=== PATIENT | female | born 1995 ===

== ENCOUNTER 2017-04-06 18:35 | Emergency (ER) | payer OTHER ==
[2017-04-06 18:36] VITALS: BMI 25.9
[2017-04-06 18:45] VITALS: BP 112/60; PULSE 82; RESP 16; TEMP 98.4; O2SAT 100
[2017-04-06] MEDS ORDERED: Sodium Chloride 0.9% 1,000 ML IV STA (19:51)
--- NOTE | 2017-04-06 20:03 | ED PDOC ---
HPI: Abdomen History Per: Patient (21 y at 10 weeks gestation as confirmed by transvaginal U/S on 03/01, LMP 01/22 presents to ED with complaints of a 3 day history of abdominal pain and vaginal bleed. Pt localizes her pain to her lower abdomen, 6/10 in intensity, with associated back pain. She describes her vaginal bleed as "small spots" and states that it is not enough to fill a small pad. Denies fever, chills, n/v, dysuria,chest pain, weakness, lightheadedness. ) <Betito Priest - Last Filed: 04/06/17 21:57> <Madeline Rudd - Last Filed: 04/06/17 22:23> Time Seen by Provider: 04/06/17 18:56 Chief Complaint (Nursing): Abdominal Pain Supervising Attending Note - Supervising Attending Note The Documented history was done by the: Physician Supply Aide The documented physical exam was done by the: Physician Supply Aide The documented procedures were done by the: Physician Supply Aide - Attestation: I have personally seen and examined this patient.: Yes I have fully participated in the care of the patient.: Yes I have reviewed all pertinent clinical information: Yes <Madeline Rudd - Last Filed: 04/06/17 22:23> Past Medical History Reviewed: Historical Data, Nursing Documentation, Vital Signs - Medical History PMH: Denies: Sexually Transmitted Disease - Surgical History Surgical History: No Surg Hx - Family History Family History: States: Unknown Family Hx - Social History Current smoker - smoking cessation education provided: No Alcohol: None Drugs: Denies - Immunization History Hx Tetanus Toxoid Vaccination: No Hx Influenza Vaccination: Yes (2015) Hx Pneumococcal Vaccination: No <Betito Priest - Last Filed: 04/06/17 21:57> <Madeline Rudd - Last Filed: 04/06/17 22:23> Vital Signs: Last Vital Signs Temp 98.4 F 04/06/17 18:42 Pulse 82 04/06/17 18:42 Resp 16 04/06/17 18:42 BP 112/60 04/06/17 18:42 Pulse Ox 100 04/06/17 22:02 - Home Medications Home Medications: Ambulatory Orders Medication Instructions Recorded Cetirizine HCl [Zyrtec] 10 mg PO DAILY #20 capsule 06/14/16 Oxymetazoline 0.05% [Oxymetazoline 2 drop NS BID #1 bottle 06/14/16 HCl 30 Ml] - Allergies Allergies/Adverse Reactions: Allergies Allergy/AdvReac Type Severity Reaction Status Date / Time No Known Allergies Allergy Verified 04/06/17 18:41 Review of Systems ROS Statement: Except As Marked, All Systems Reviewed And Found Negative Constitutional: Negative for: Fever, Chills, Weakness Cardiovascular: Negative for: Chest Pain, Light Headedness Respiratory: Negative for: Cough Gastrointestinal: Positive for: Abdominal Pain. Negative for: Nausea, Vomiting Genitourinary Female: Positive for: Pelvic Pain. Negative for: Dysuria Musculoskeletal: Positive for: Back Pain Neurological: Negative for: Weakness Psych: Positive for: Anxiety <Betito Priest - Last Filed: 04/06/17 21:57> Physical Exam - Reviewed Nursing Documentation Reviewed: Yes Vital Signs Reviewed: Yes - Physical Exam Appears: Positive for: Well, Non-toxic, No Acute Distress Head Exam: Positive for: ATRAUMATIC, NORMAL INSPECTION, NORMOCEPHALIC Skin: Positive for: Normal Color, Warm, DRY Eye Exam: Positive for: EOMI, Normal appearance, PERRL ENT: Positive for: Normal ENT Inspection Neck: Positive for: Normal, Painless ROM Cardiovascular/Chest: Positive for: Regular Rate, Rhythm Respiratory: Positive for: CNT, Normal Breath Sounds Gastrointestinal/Abdominal: Positive for: Normal Exam, Bowel Sounds, Soft, Tenderness (Tender to palpation of suprapubic region ) Pelvic Exam: Positive for: Active Bleeding (small amount of bleeding near cervix ; no products of conception seen in upper vagina or protruding thru cervical os) . Negative for: No Cerv. Motion Tender, Cervicitis, Discharge, Lesions, Tender Uterus, Ulcers Back: Positive for: Normal Inspection. Negative for: L CVA Tenderness, R CVA Tenderness Extremity: Positive for: Normal ROM Neurologic/Psych: Positive for: Alert, Oriented <Betito Priest - Last Filed: 04/06/17 21:57> - Laboratory Results Result Diagrams: 04/06/17 20:23 04/06/17 20:23 - ECG O2 Sat by Pulse Oximetry: 100 <Betito Priest - Last Filed: 04/06/17 21:57> - Laboratory Results Result Diagrams: 04/06/17 20:23 04/06/17 20:23 <Madeline Rudd - Last Filed: 04/06/17 22:23> Disposition <Betito Priest - Last Filed: 04/06/17 21:57> - Patient ED Disposition Is Patient to be Admitted: No Doctor Will See Patient In The: Office Counseled Patient/Family Regarding: Diagnosis, Need For Followup - Disposition Disposition: Routine/Home Disposition Time: 22:22 <Madeline Rudd - Last Filed: 04/06/17 22:23> - Clinical Impression Clinical Impression: Miscarriage - Disposition [facility]] [facility] [Outside] [facility] [Outside] Condition: STABLE Forms: Welcome Real-time (Croatian)
[2017-04-06 20:27] LABS: BASO % 0.3 % (0.0-2.0); EOS # 0.2 K/uL (0.0-0.7); EOS % 2.1 % (0.0-4.0); HEMATOCRIT 38.8 % (34.0-47.0); LYMPH % 24.3 % (20.0-40.0); MEAN CORPUSCULAR HEMOGLOBIN 28.3 pg (27.0-31.0); MEAN CORPUSCULAR HGB CONC 33.7 g/dL (33.0-37.0); MEAN PLATELET VOLUME 8.6 fl (7.2-11.7); MONO # 0.6 K/uL (0.0-0.8); MONO % 7.4 % (0.0-10.0); NEUT # 5.5 K/uL (1.8-7.0); NEUT % 65.9 % (50.0-75.0); NRBC % 0.1 % (0.0-0.0); RED CELL DISTRIBUTION WIDTH 13.3 % (11.5-14.5); WHITE BLOOD COUNT 8.3 K/uL (4.8-10.8)
[2017-04-06 20:33] LABS: RBC URINE < 1 /hpf (0-3); URINE BILIRUBIN NEGATIVE (NEGATIVE); URINE BLOOD NEGATIVE (NEGATIVE); URINE COLOR STRAW (YELLOW); URINE GLUCOSE (UA) NEG (Normal); URINE KETONE NEGATIVE (NEGATIVE); URINE LEUKOCYTE ESTERASE NEG Leu/uL (Negative); URINE PROTEIN NEGATIVE (NEGATIVE); URINE UROBILINOGEN 0.2-1.0 mg/dL (0.2-1.0)
[2017-04-06 20:36] LABS: BLOOD UREA NITROGEN 5 mg/dl (7-17); CALCIUM 9.6 mg/dL (8.4-10.2); CARBON DIOXIDE 24 mmol/L (22-30); CHLORIDE 104 mmol/L (98-107); GFR AFRICAN-AMERICAN > 60; GLUCOSE,RANDOM 92 mg/dL (65-105); SODIUM 139 mmol/l (132-148)
--- NOTE | 2017-04-06 21:44 | US ---
EXAM: US CLINICAL HISTORY: 21 years old, female; Signs and symptoms; Lmp or gestational age (in weeks): 01/22/2017; Other: Spotting x 2days; ; Additional info: Vaginal bleeding TECHNIQUE: Real-time transabdominal and transvaginal obstetrical ultrasound of the maternal pelvis and a first trimester with image documentation. COMPARISON: No relevant prior studies available. FINDINGS: Uterus: Retroverted uterus. No intrauterine gestational sac is seen. The uterus is heterogeneous. Endometrium is thickened measured at 2 cm and appears irregular and complex with anechoic foci within and vascularity. Adnexa: Doppler evaluation reveals vascular flow in both ovaries. Follicles. No mass noted. Free fluid: Small amount of free fluid, in region of left adnexa. IMPRESSION: Endometrium is thickened measured at 2 cm and appears irregular and complex with anechoic foci within and vascularity. Additional followup evaluation recommended. Correlate with beta hCG which is unavailable at time of interpretation. No intrauterine is identified. Differential diagnosis includes spontaneous , very early intrauterine , and ectopic . Small amount of free fluid, in region of left adnexa.
== END 2017-04-06 22:28 | disposition home or self-care (01) ==
LOC: H.ER 18:35
DX: O03.9 Complete or unspecified spontaneous abortion without complication (principal)
CPT/HCPCS: 76817; 80048; 81003; 81025; 84702; 85025; 96360; 99283; J7040

== ENCOUNTER 2017-10-20 00:06 | Emergency (ER) | payer OTHER ==
[2017-10-20 00:06] VITALS: BMI 25.9
[2017-10-20 00:35] VITALS: BP 113/73; PULSE 80; RESP 16; TEMP 97.8; O2SAT 99
--- NOTE | 2017-10-20 01:22 | ED PDOC ---
HPI: Abdomen Time Seen by Provider: 10/20/17 00:39 Chief Complaint (Nursing): Abdominal Pain Chief Complaint (Provider): Abdominal Pain History Per: Patient History/Exam Limitations: no limitations Associated Symptoms: denies: Fever, Nausea, Vomiting, Diarrhea, Urinary Symptoms Additional Complaint(s): 22 y/o female presents to the ED for evaluation of lower abdominal pain associated with lower back pain and light vaginal spotting since 11pm. Patient reports 5 weeks and has no prior obstetrics care for this . Also reports miscarriage 6 months ago. Her last normal menstrual period was on 09/19/2017. Denies nausea, vomiting, flank pain, urinary symptoms or any further medical complaints. PMD: None Past Medical History Reviewed: Historical Data, Nursing Documentation, Vital Signs Vital Signs: Last Vital Signs Temp 97.8 F 10/20/17 00:29 Pulse 80 10/20/17 00:29 Resp 16 10/20/17 00:29 BP 113/73 10/20/17 00:29 Pulse Ox 99 10/20/17 04:09 - Medical History PMH: No Chronic Diseases Denies: Sexually Transmitted Disease - Surgical History Surgical History: No Surg Hx - Family History Family History: States: Unknown Family Hx - Social History Current smoker - smoking cessation education provided: No Alcohol: None Drugs: Denies - Immunization History Hx Influenza Vaccination: Yes (2016) - Home Medications Home Medications: Ambulatory Orders Medication Instructions Recorded Cetirizine HCl [Zyrtec] 10 mg PO DAILY #20 capsule 06/14/16 Oxymetazoline 0.05% [Oxymetazoline 2 drop NS BID #1 bottle 06/14/16 HCl 30 Ml] Pnv No.121/Iron/Folic Acid 1 each PO DAILY #14 tablet 10/20/17 [ Multivitamin Tablet] - Allergies Allergies/Adverse Reactions: Allergies Allergy/AdvReac Type Severity Reaction Status Date / Time No Known Allergies Allergy Verified 04/06/17 18:41 Review of Systems ROS Statement: Except As Marked, All Systems Reviewed And Found Negative (As per HPI, otherwise negative) Gastrointestinal: Positive for: Abdominal Pain (Lower). Negative for: Nausea, Vomiting Genitourinary Female: Positive for: Other (vaginal spotting). Negative for: Dysuria, Frequency, Incontinence, Hematuria Musculoskeletal: Positive for: Back Pain (lower) Physical Exam - Reviewed Nursing Documentation Reviewed: Yes Vital Signs Reviewed: Yes - Physical Exam Appears: Positive for: Well, Non-toxic, No Acute Distress Head Exam: Positive for: ATRAUMATIC, NORMOCEPHALIC Skin: Positive for: Normal Color, Warm, Dry Eye Exam: Positive for: EOMI, PERRL ENT: Positive for: Normal ENT Inspection Neck: Positive for: Painless ROM, Supple Cardiovascular/Chest: Positive for: Regular Rate, Rhythm. Negative for: Murmur Respiratory: Positive for: Normal Breath Sounds. Negative for: Decreased Breath Sounds, Accessory Muscle Use, Respiratory Distress Gastrointestinal/Abdominal: Positive for: Bowel Sounds (active x4), Soft, Tenderness (suprapubic). Negative for: Distended, Guarding, Rebound Back: Positive for: Normal Inspection. Negative for: L CVA Tenderness, R CVA Tenderness Extremity: Positive for: Normal ROM. Negative for: Pedal Edema, Deformity Neurologic/Psych: Positive for: Alert, Oriented (x3), Mood/Affect (calm, cooperative), Gait (steady in ED) - Laboratory Results Result Diagrams: 10/20/17 01:35 10/20/17 01:35 - ECG O2 Sat by Pulse Oximetry: 99 (RA) Pulse Ox Interpretation: Normal Medical Decision Making Medical Decision Making: Time: 01:05 Initial Impression: Vaginal bleeding (first trimester) and abdominal pain Plan: Type and screen Beta- HcG, quantitative CMP Urine dipstick Urine CBbc w/ differential IV Insertion Transvaginal US Patient declines any medications at this time. Urine Dipstick -- Positive for -- Negative for glucose, bilirubin, leukocytes, nitrates, ketones, blood, protein 0300 Labs reviewed. Beta quant: 2,338.10. Patient pending U/S evaluation. 0320 Patient in U/S. 0402 U/S reviewed, radiology report follows EXAM: US , Transvaginal CLINICAL HISTORY: 22 years old, female; Signs and symptoms; Other: Spotting; Additional info: Vaginal bleeding, TECHNIQUE: Real-time transvaginal obstetrical ultrasound of the maternal pelvis and a first trimester with image documentation. Transvaginal imaging was used for better evaluation of the fetus and adnexa. COMPARISON: No relevant prior studies available. FINDINGS: Gestation: 0.5 x 0.2 x 0.5 cm saclike structure within uterus. No yolk sac. No pole. Uterus/cervix: Endometrium: 1.3 cm in thickness. Closed cervix. Ovaries: Normal ovaries. No adnexal masses. Free fluid: No significant free fluid. IMPRESSION: 1. Sac without pole or yolk sac. DDX: Early IUP, blighted ovum, ectopic (with pseudogestational sac). Followup is recommended. Thank you for allowing us to participate in the care of your patient. Dictated and Authenticated by: Delmer Casanova MD 10/20/2017 3:46 AM Eastern Time ([place] & [place]) 0410 On re-evaluation, patient reports improvement of symptoms, denies any abdominal pain at present. On exam, patient remains AAOx3, in no acute distress. Lungs clear to auscultation, cardiac RRR, abdomen soft, non-tender, repeat neuro exam shows no focal findings. Lab results reviewed, Diagnostic results d/w the patient in great detail. Diagnosis of abdominal pain in , vaginal bleeding d/w the patient. Based on history, exam and diagnostic results, plan will be for outpatient follow up. Patient instructed to follow-up with pmd / referral provided / the clinic in 1- 2 days without fail. Advised to take medication as prescribed. Return to the emergency room at any time for any new or worsening symptoms. Patient states she fully agrees with and understands discharge instructions. States that she agrees with the plan and disposition. Verbalized and repeated discharge instructions and plan. I have given the patient opportunity to ask any additional questions. Scribe Attestation: Documented by Rosalind Rosales acting as a scribe for FLORENCIO Olvera. MD Lua Attestation: All medical record entries made by the Scribe were at my direction and personally dictated by me. I have reviewed the chart and agree that the record accurately reflects my personal performance of the history, physical exam, medical decision making, and the department Disposition - Clinical Impression Clinical Impression: Vaginal bleeding affecting early , First-trimester bleeding, Abdominal pain during - Patient ED Disposition Is Patient to be Admitted: No Counseled Patient/Family Regarding: Studies Performed, Diagnosis, Need For Followup, Rx Given - Disposition [facility] [Outside] Disposition: Routine/Home Disposition Time: 04:05 Condition: FAIR Additional Instructions: FOLLOW UP WITHIN 2-4 DAYS FOR REPEAT U/S EVALUATION. Prescriptions: Pnv No.121/Iron/Folic Acid [ Multivitamin Tablet] 1 each PO DAILY #14 tablet Instructions: Bleeding With , - The First Month, - The Second Month, - The Third Month Forms: [employer] (Israeli) - POA Present On Arrival: None Results - Lab Results Lab Results: 10/20/17 10/20/17 10/20/17 01:35 01:35 01:14 WBC 12.1 H RBC 4.56 Hgb 12.8 Hct 38.7 MCV 84.8 MCH 28.0 MCHC 33.1 RDW 13.7 Plt Count 211 MPV 8.9 Neut % (Auto) 66.0 Lymph % (Auto) 25.0 [place] % (Auto) 5.3 Eos % (Auto) 2.9 Baso % (Auto) 0.8 Neut # (Auto) 8.0 H Lymph # (Auto) 3.0 [place] # (Auto) 0.6 Eos # (Auto) 0.4 Baso # (Auto) 0.1 Sodium 140 Potassium 4.0 Chloride 103 Carbon Dioxide 23 Anion Gap 18 BUN 12 Creatinine 0.6 L Est GFR ( Amer) > 60 Est GFR (Non-Af Amer) > 60 Random Glucose 97 Calcium 9.1 Total Bilirubin 0.2 AST 19 ALT 44 Alkaline Phosphatase 72 Total Protein 7.1 Albumin 4.2 Globulin 2.9 Albumin/Globulin Ratio 1.4 Beta HCG, Quant 2338.10 Blood Type O POSITIVE Antibody Screen Negative BBK History Checked No verified bt
[2017-10-20 01:39] LABS: BASO # 0.1 K/uL (0.0-0.2); BASO % 0.8 % (0.0-2.0); EOS # 0.4 K/uL (0.0-0.7); EOS % 2.9 % (0.0-4.0); HEMOGLOBIN 12.8 g/dL (12.0-16.0); MEAN CELL VOLUME 84.8 fl (81.0-99.0); MEAN CORPUSCULAR HGB CONC 33.1 g/dL (33.0-37.0); MEAN PLATELET VOLUME 8.9 fl (7.2-11.7); MONO # 0.6 K/uL (0.0-0.8); MONO % 5.3 % (0.0-10.0); NRBC % 0.2 % (0.0-0.0); RBC 4.56 Mil/uL (3.80-5.20); RED CELL DISTRIBUTION WIDTH 13.7 % (11.5-14.5); WHITE BLOOD COUNT 12.1 K/uL (4.8-10.8)
[2017-10-20 01:46] LABS: ALB/GLOB RATIO 1.4 (1.0-2.1); ALBUMIN 4.2 g/dL (3.5-5.0); ALT/SGPT 44 U/L (9-52); AST/SGOT 19 U/L (14-36); BLOOD UREA NITROGEN 12 mg/dl (7-17); CALCIUM 9.1 mg/dL (8.4-10.2); GFR AFRICAN-AMERICAN > 60; GFR NON-AFRICAN AMERICAN > 60
--- NOTE | 2017-10-20 03:46 | US ---
EXAM: US , Transvaginal CLINICAL HISTORY: 22 years old, female; Signs and symptoms; Other: Spotting; Additional info: Vaginal bleeding, TECHNIQUE: Real-time transvaginal obstetrical ultrasound of the maternal pelvis and a first trimester with image documentation. Transvaginal imaging was used for better evaluation of the fetus and adnexa. COMPARISON: No relevant prior studies available. FINDINGS: Gestation: 0.5 x 0.2 x 0.5 cm saclike structure within uterus. No yolk sac. No pole. Uterus/cervix: Endometrium: 1.3 cm in thickness. Closed cervix. Ovaries: Normal ovaries. No adnexal masses. Free fluid: No significant free fluid. IMPRESSION: 1. Sac without pole or yolk sac. DDX: Early IUP, blighted ovum, ectopic (with pseudogestational sac). Followup is recommended.
== END 2017-10-20 04:25 | disposition home or self-care (01) ==
LOC: H.ER 00:06
DX: O26.851 Spotting complicating pregnancy, first trimester (principal); O26.91 Pregnancy related conditions, unspecified, first trimester; R10.2 Pelvic and perineal pain

== ENCOUNTER 2018-06-07 07:08 | Inpatient (IN) | payer MEDICAID, SELFPAY ==
[2018-06-07 08:21] VITALS: BMI 34.3
[2018-06-07 09:30] VITALS: O2SAT 99
[2018-06-07 10:08] LABS: BASO % 0.2 % (0.0-2.0); EOS # 0.1 K/uL (0.0-0.7); EOS % 0.7 % (0.0-4.0); HEMOGLOBIN 11.8 g/dL (12.0-16.0); LYMPH # 1.4 K/uL (1.0-4.3); LYMPH % 12.8 % (20.0-40.0); MEAN CELL VOLUME 80.7 fl (81.0-99.0); MEAN CORPUSCULAR HEMOGLOBIN 26.7 pg (27.0-31.0); MEAN CORPUSCULAR HGB CONC 33.1 g/dL (33.0-37.0); MONO # 0.6 K/uL (0.0-0.8); MONO % 5.6 % (0.0-10.0); NEUT % 80.7 % (50.0-75.0); NRBC % 0.2 % (0.0-0.0); RBC 4.43 Mil/uL (3.80-5.20); RED CELL DISTRIBUTION WIDTH 15.7 % (11.5-14.5); WHITE BLOOD COUNT 11.1 K/uL (4.8-10.8)
[2018-06-07] MEDS ORDERED: Lactated Ringer's 1,000 ML IV SCH (10:45)
[2018-06-07] MEDS ORDERED: OXYTOCIN/0.9 % NS 20 UNIT/1,000 ML BAG IV SCH (10:45)
[2018-06-07] MEDS ORDERED: Oxytocin 30 UNIT 30 UNITS/500 ML BAG IV ONE ×2 (11:11→17:32)
[2018-06-07] MEDS: Lactated Ringer's 1,000 ML IV SCH ×3 (14:00→16:55)
[2018-06-07] MEDS ORDERED: Fentanyl/Bupivacaine HCl 250 ML EPI ONE (14:11)
[2018-06-07] MEDS ORDERED: Lidocaine 1% Inj (20ml) ONE (14:45)
[2018-06-07] MEDS ORDERED: Benzocaine/Menthol SPRAY TOP PRN ×2 (16:05→17:58)
--- NOTE | 2018-06-07 20:20 | OBHP ---
Datetime: 06/07/2018 14:13 Presentation-Admit: Vertex FHR - Baseline A Provider: 120 Amniotic Fluid Color, Provider: Clear Membranes, Provider: Ruptured Gestation - Est Wks by US: 37.2 Vital Signs Provider: Reviewed; Within Normal Limits NICHD Variability Prov Fetus A: Moderate 6-25bpm NICHD Accel Fetus A IP Provider: [id number] FHR Category Provider Fetus A: Category I NICHD Decel Fetus A IP Provider: None Datetime: 06/07/2018 10:35 Contraction Comments Provider: Uterine irritability Datetime: 06/07/2018 08:21 IP Adm Impression: Term, intrauterine ; No Active Labor; Ruptured Membranes IP Admit Plan: Admit to unit; Initiate labor protocol Admit Comment, IP Provider: Pt is a 22 yo F 37.2wk, JASSON 06/26/18 based on LMP 09/19/17. Came to [facility] due to feeling LOF, she felt a gush then trickling since 5:40am then started to feel lower abdominal pain. Pt states she feels good movement. Denies vaginal bleeding, contractions, fever s, chills, chest pain, SOB, nausea, vomiting, diarrhea, constipation or dysuria. 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 Lungs: clear to auscultation bilaterally, no wheezing , rales or rhonchi Abdomen: gravid Extremities: no edema Speculum- + Nitrazine, + fern test, Bimanual- 3cm dilated, 90% effacement heart rate -140's 15x15 accelerations category 1 A/P: Pt is a 22 yo F 37.2wk, JASSON 06/26/18 based on LMP 09/19/17. Came to [facility] due to feeling LO F -Admit to L _ D -Monitor heart rate (150's) -NPO -Lactated Ringers -Speculum [id number]-8-0mt, 90%effaced, -2 station, + nitrazine, + fern Case reviewed and discussed with Attending -Carol Lundy- PGY1 Pelvic Type - PN: Adequate Extremities - PN: Normal Abdomen - PN: Normal Back - PN: Not Done Breast - PN: Not Done Lungs - PN: Normal Heart - PN: Normal Thyroid - PN: Not Done Neurologic - PN: Normal HEENT - PN: Normal General - PN: Normal Pool Provider: Positive Nitrazine Provider: Positive Ferning Provider: Positive EGA AdmitDate IP: 37.2 IP Chief Complaint: Suspected ruptured membranes Dilatation, Provider: 3 Effacement, Provider: 90 Station, Provider: -2 Genitourinary Exam: Normal DTRs - PN: Not Done
--- NOTE | 2018-06-07 20:24 | OBDS ---
DELIVERY PERSONNEL Delivery Doctor: Cody Moser MD Dean Of Boys: Hailee Prather RN Resident: Dr Buck (fellow) MATERNAL INFORMATION Delivery Anesthesia: Epidural Medications in Delivery: Pitocin Estimated Blood Loss (ml): 250 Quatatative Placenta Cultured: No Maternal Complications: None RN Comments: Atraumatic of a viable babyboy with lusty cry. Infant and patient tolerated deliv hong well. Skin to skin initiated immediately post delivery. Patient intact. Infant and patient bharati ated delivery well. Provider Comments: 22 year old GBS negative admitted at 37.2 for PROM. Normal spontaneous vagin al delivery of live male infact, position BEATRIZ over intact perineum with epidural anesthesia. Terminal meconium with no nuchal cord, Apgars 9 _ 9. was placed on maternal abdomen and delayed cord c lamping was performed, no excessive resuscitation was required. Spontaneous delivery of placenta with 3-vessel cord. The vagina was explored and no lacerations were found. EBL 250cc. Gayle Buck MD OB Fellow Attending Note: Delivery was conducted with OB fellow and I agree with the above assessment. LABOR SUMMARY EDC: 06/26/2018 00:00 No. Babies in Womb: 1 Attempted: No Labor Anesthesia: Epidural LABOR INFORMATION Reason for Induction: Other Reason for Induction Other: ROM Onset of Labor: 06/07/2018 13:00 Complete Dilatation: 06/07/2018 15:30 Oxytocin: Induction Group B Beta Strep: Negative Antibiotics # of Doses: 0 Steroids Given: None Reason Steroids Not Administered: Not Applicable Other Reason Not Administered: Not required MEMBRANES Membranes Rupture Method: Spontaneous Rupture of Membranes: 06/07/2018 05:40 Length of Rupture (hrs): 10.15 Amniotic Fluid Color: Clear Amniotic Fluid Amount: Scant Amniotic Fluid Odor: Normal STAGES OF LABOR Stage 1 hrs: 2 Stage 1 min: 30 Stage 2 hrs: 0 Stage 2 min: 19 Stage 3 hrs: 0 Stage 3 min: 8 Total Time in Labor hrs: 2 Total Time in Labor min: 57 VAGINAL DELIVERY Episiotomy: None Laceration Extension: N/A Laceration Type: None Initial Vag Sponge Count: 10 Final Vag Sponge Count: 10 Initial Vag Sharps Count: 0 Final Vag Sharps Count: 0 Sponge Count Correct: Yes Sharps Count Correct: Yes BABY A INFORMATION Delivery Date/Time: 06/07/2018 15:49 Method of Delivery: Vaginal Born in Route : No : N/A Forceps: N/A Vacuum Extraction: N/A Shoulder Dystocia : No SHOULDER DYSTOCIA BABY A Infant Delivery Date/Time: 06/07/2018 15:49 PRESENTATION/POSITION BABY A Presentation: Cephalic Cephalic Presentation: Vertex Vertex Position: Left Occipital Anterior Breech Presentation: N/A PLACENTA INFORMATION BABY A Placenta Delivery Time : 06/07/2018 15:57 Placenta Method of Delivery: Spontaneous Placenta Status: Delivered SCORES BABY A Heart Rate 1 min: >100 bpm Resp Effort 1 min: Good Cry Reflex Irritability 1 min: Cough or Sneeze or Pulls Away Muscle Tone 1 min: Active Motion Color 1 min: Body Shell, Extremities Blue Resuscitation Effort 1 min: N/A SCORE 1 MIN: 9 Heart Rate 5 min: >100 bpm Resp Effort 5 min: Good Cry Reflex Irritability 5 min: Cough or Sneeze or Pulls Away Muscle Tone 5 min: Active Motion Color 5 min: Body Shell, Extremities Blue Resuscitation Effort 5 min: N/A SCORE 5 MIN: 9 INFANT INFORMATION BABY A Gestational Age at Delivery: 37.0 Gestational Status: Term Outcome : Liveborn Condition : Stable Infant Sex: Male IDENTIFICATION/MEDS BABY A ID Band Number: [id number] ID Band Location: Right Leg; Right Arm WEIGHT/LENGTH BABY A Infant Birthweight (gms): 3445 Infant Weight (lb): 7 Weight (oz): 9 CORD INFORMATION BABY A No. Cord Vessels: 3 Nuchal Cord : N/A Nuchal Cord Other: 0 Cord Blood Taken: No Suction: Mouth
[2018-06-07] MEDS ORDERED: Influenza Vaccine (5 YR UP)/PF 60 MCG/0.5 ML SYR IM ONE (21:00)
[2018-06-08 06:47] LABS: BASO % 0.1 % (0.0-2.0); EOS % 0.2 % (0.0-4.0); HEMOGLOBIN 9.2 g/dL (12.0-16.0); LYMPH # 1.5 K/uL (1.0-4.3); LYMPH % 12.5 % (20.0-40.0); MEAN CELL VOLUME 80.5 fl (81.0-99.0); MEAN CORPUSCULAR HEMOGLOBIN 27.3 pg (27.0-31.0); MEAN CORPUSCULAR HGB CONC 33.9 g/dL (33.0-37.0); MEAN PLATELET VOLUME 9.1 fl (7.2-11.7); MONO # 0.8 K/uL (0.0-0.8); MONO % 6.9 % (0.0-10.0); NEUT # 9.5 K/uL (1.8-7.0); NEUT % 80.3 % (50.0-75.0); NRBC % 0.1 % (0.0-0.0); RBC 3.36 Mil/uL (3.80-5.20); RED CELL DISTRIBUTION WIDTH 15.6 % (11.5-14.5); WHITE BLOOD COUNT 11.9 K/uL (4.8-10.8)
--- NOTE | 2018-06-08 08:43 | OBPPN ---
Datetime: 06/08/2018 06:24 PP Pain Prov: Within normal limits PP Nausea Prov: Denies PP Flatus Prov: Yes PP BM Prov: No PP Breasts Prov: Normal PP Heart Prov: Normal PP Lungs Prov: Normal PP Abdomen/Uterus Prov: Normal PP Lochia Prov: Normal PP Vulva/Perineum Prov: Normal PP CVA Tenderness Prov: Normal PP Extremities Prov: Normal PP C/S Incision Prov: Normal PP Comments Phys Exam Prov: Abd: Soft, NT, BS- present UT- Firm PP Impression Prov: Normal progression PP Plan Prov: Continue present management PP Progress Note Prov: 22 y/o PPD 1 s/p had no complaints of overnight. +FM, -BM, voiding, ambulating, _ tolerating PO diet w/o difficulty. Lochia like menses. Fundus @ level of umbilical Den ies any f/c/n/v/d, cp or sob. VS: 119/51, HR-90bpm, Temp-97.9F Gen: awake _ alert breasting in bed Cardio: s1 s2 no murmurs Lungs: cta b/l Abd: BS +, appropriate tenderness Ext: nontender A/P: 22 y/o PPD 1 s/p -Continue present management -Medication for pain management -Encourage breast feeding -SCD for DVT prophylaxis -Case discussed with attending -KORI Dee JP, PGY-1 Vital Signs Provider PP: Reviewed; Within Normal Limits
[2018-06-09] MEDS ORDERED: Prenatal Multivit/Folic Acid/Iron Tab PO SCH (09:00)
--- NOTE | 2018-06-09 13:52 | OBPPN ---
Datetime: 06/09/2018 06:45 PP Pain Prov: Within normal limits PP Nausea Prov: Denies PP Flatus Prov: Yes PP BM Prov: No PP Breasts Prov: Not Done PP Heart Prov: Normal PP Lungs Prov: Normal PP Abdomen/Uterus Prov: Normal PP Lochia Prov: Normal PP Vulva/Perineum Prov: Normal PP CVA Tenderness Prov: Normal PP C/S Incision Prov: Not Applicable PP Progress Prov: Normal PP Impression Prov: Normal progression PP Plan Prov: Continue present management; Discharge PP Progress Note Prov: 22 y/o PPD 1 s/p had no complaints of overnight. +FM, -BM, voiding, ambulating, _ tolerating PO diet w/o difficulty. Lochia like menses. Breast feeding and supplementin g with bottle. Fundus @ level of umbilical Denies any f/c/n/v/d, cp or sob. VS: 119/51, HR-90bpm, Temp-97.9F Gen: awake _ alert breasting in bed Cardio: s1 s2 no murmurs Lungs: cta b/l Abd: BS +, appropriate tenderness Ext: nontender A/P: 22 y/o PPD 1 s/p -Medication for pain management -Encourage breast feeding -Patient stable for discharge today -Lory Grey, PGY-1 [employer] Underwriter. Attending Note: Patient was seen and discussed with resident and I agree with the above. Vital Signs Provider PP: Reviewed; Within Normal Limits
--- NOTE | 2018-06-09 13:55 | OBDCSUM ---
Datetime: 06/09/2018 06:47 Discharged to, Provider: Home Follow up at, Provider: Linwood Garcia Instr Activity: Normal activity; May be up to bathroom; May be up for meals; May Shower Disch Instr Diet: Regular Discharge Instructions, Provider: Routine instructions given Discharge Diagnosis, Provider: Term Delivered Discharge Time: 06/09/2018 11:00 Follow up in weeks, Provider: 5 to 6 weeks Disch Referrals: None Contraception discussed, Prov: Yes Disch Activity Restrictions: No lifting; No sexual activity; Nothing in vagina - [place], tampon s, douche Discharge Comment, Provider: Discharge Note EGA: 37.2 weeks Diagnosis: 22 y/o , s/p on 06/07/18 @ 15:49. She delivered a baby male, Wt 3445g, 9 9 Summary: Patient is PPD2 with normal progression. No complications during post- period. [place] less than menses. Pt was able to pass gas but has not had BM, She is tolerating regular diet, Fund us firm below umbilicus, able to ambulate w/o any difficulties, voiding well, denies fever, chills, H A, SOB, N/V, calf pain. She has been breast-feeding without difficulty and supplementing with bottle feeds. CBC post-: 9.09/25 Discharge Instructions: 1. Continue and increase 2. PNV 1 tab PO daily 3. Ibuprofen 600mg 1 tab PO Q6h prn for mild-mod pain 4. Pt will use OCP's for contraception after 6 months of breast feeding. 5. Instructions given to patient: If excessive bleeding, return of pain or increasing pain and/or fever without relief from medication, go to ED 6. PT was urged if feeling sad, mood swing, depression, neglect of baby, suicidal thoughts, homici delbert thought should go to ED or call 911 for help 7. Pt should go to her Primary care doctor if she has difficulty with 8. F/U post- visit in [address] [facility]. Lory Grey MD PGY1 Discharge Diagnosis Prov Other: S/P Uncomplicated , Clinically Stable Contraception after Delivery: Control Pill/Patch
[2018-06-09 17:40] VITALS: BP 111/64; PULSE 85; RESP 20; TEMP 98.3
== END 2018-06-09 12:00 | disposition home or self-care (01) | DRG 560 ==
LOC: H.EROB2 07:08 → H.EROB 07:10 → H.EROB2 09:10 → H.L&D 09:11 → H.OB/GYN 17:45
PROVIDERS: ADMIT Obstetrics & Gynecology; ATTEND Obstetrics & Gynecology
PROC: 10E0XZZ Delivery of Products of Conception, External Approach (ICD-10-PCS; principal; 2018-06-07)
PROC: 4A1HXCZ Monitoring of Products of Conception, Cardiac Rate, External Approach (ICD-10-PCS; 2018-06-07)
DX: O42.90 Premature rupture of membranes, unspecified as to length of time between rupture and onset of labor, unspecified weeks of gestation (principal); O77.0 Labor and delivery complicated by meconium in amniotic fluid; Z37.0 Single live birth; Z3A.37 37 weeks gestation of pregnancy